=== PATIENT | female | born 1990 ===

== ENCOUNTER 2018-06-13 14:43 | Emergency (ER) | payer SELFPAY ==
[2018-06-13 15:40] LABS: #Eosinphils 0.1 thou/uL (0.0-0.7); #Lymphocytes 2.6 thou/uL (1.20-3.40); #Monocytes 0.7 thou/uL (0.11-0.59); #Neutrophils 6.6 thou/uL (1.40-6.50); %Basophils 0.5 % (0.0-1.0); %Eosinophils 0.6 % (0.0-10.0); %Lymphocytes 26.1 % (21.0-51.0); %Monocytes 6.5 % (0.0-10.0); %Neutrophils 66.3 % (42.0-75.0); Hemoglobin 14.8 g/dL (12.0-16.0); Mean Corpuscular HGB CONC 31.7 g/dL (32.0-36.0); Mean Corpuscular Hemoglobin 29.8 pg (27.0-31.0); Mean Corpuscular Volume 93.9 fL (78.0-98.0); Mean Platelet Volume 7.7 fL (7.4-10.4); Platelet Count 283 thou/uL (130-400); Red Blood Cell (RBC) Count 4.95 mill/uL (4.20-5.40)
[2018-06-13 16:02] LABS: ALT (SGPT) 10 U/L (8-55); AST (SGOT) 18 U/L (5-34); Albumin 5.1 g/dL (3.5-5.0); Alkaline Phosphatase 65 U/L (40-150); Anion Gap 15 mmol/L (10-20); BUN (Urea Nitrogen) 10 mg/dL (7.0-18.7); Bilirubin, Total 0.9 mg/dL (0.2-1.2); Calc. Creatinine Clearance 0 mL/min (70-130); Calcium 10.3 mg/dL (7.8-10.44); Carbon Dioxide 22 mmol/L (22-29); Chloride 108 mmol/L (98-107); Estimated GFR-MDRD 85; Globulin 3.1 g/dL (2.4-3.5); Glucose 97 mg/dL (70-105); Potassium 3.5 mmol/L (3.5-5.1); Protein, Total 8.2 g/dL (6.0-8.3); Sodium 141 mmol/L (136-145)
[2018-06-13 16:13] LABS: Bilirubin Negative (Negative); Blood, Urine Large (Negative); Clarity CLEAR (Clear); Glucose, Urine (Dipstick) Negative (Negative); Leukocyte Moderate (Negative); Nitrite Negative (Negative); Protein, Urine (Dipstick) Negative (Neg-Trace); Specific Gravity, Urine 1.009 (1.002-1.036); Urobilinogen 0.2 mg/dL (0.2-1.0); pH, Urine 6.5 (5.0-9.0)
[2018-06-13 16:14] LABS: Pregnancy Test - Urine (BHCG) Negative (Negative); Pregu Control Background? CLEAR/WHITE (CLR/WHITE); Pregu Control Bar Appear? YES (CONTROL BAR); Specific Gravity 1.009 (1.002-1.036)
[2018-06-13 16:15] LABS: Bacteria/HPF 4+ HPF (None Seen); Hyaline Casts/LPF 0-3 HYALINE CAST LPF (0-3 Hyaline); Pathc Cast-AUWi Flag 0.43 (0-2.49); RBC/HPF 0-3 HPF (0-3); Squamous Epithelial 0-3 HPF (0-3); WBC/HPF 21-50 HPF (0-3)
[2018-06-13] MEDS ORDERED: Ketorolac Tromethamine 30 MG/ML VIAL ONE (16:29)
[2018-06-13] MEDS ORDERED: Ondansetron PF 4 MG/2 ML Vial ONE (16:29)
--- NOTE | 2018-06-13 18:00 | CT ---
NONCONTRAST CT ABDOMEN AND PELVIS 06/13/18 HISTORY: Hematuria for 4 days with history of flank pain for 4 weeks. Urinary frequency and burning. COMPARISON: None available. FINDINGS: The lung bases are clear. There are multiple nonobstructing bilateral renal calculi measuring up to 4 mm in greatest dimensions . The ureters are not well seen bilaterally due to multiple unopacified structures and lack of intra- abdominal fat. No definite ureteral calculus is visualized. There is no hydronephrosis or hydroureter visualized. There are calcifications seen in the pelvis likely related to multiple phleboliths. The urinary bladder is incompletely distended, but otherwise normal in appearance. The liver, spleen, pancreas, and bilateral adrenal glands as well as the uterus and adnexal structure s demonstrate a grossly normal nonenhanced CT appearance for the patient's age. Portions of the appendix are visualized and are normal in caliber with gas present without CT finding s to suggest appendicitis. There is minimal non-specific stranding seen in the lower pelvis which is defined and does not appear to be related to an inflammatory process; this may be related to vessels in this region. No rectal wall thickening is present. Small bowel is normal in caliber. IMPRESSION: 1. Nonobstructing bilateral renal calculi. There is no evidence of hydronephrosis or hydroureter . As noted above, the ureters are not visualized, but no definitive calculus is seen along the course of either ureter. There is a calcification in the left hemipelvis which is in the region of the left ureter, but this is most likely related to a phlebolith. 2. No CT evidence of appendicitis. POS: [facility]
== END 2018-06-13 18:00 | disposition home or self-care (01) ==
LOC: ERS 14:43
DX: N39.0 Urinary tract infection, site not specified (principal); N20.0 Calculus of kidney; G43.909 Migraine, unspecified, not intractable, without status migrainosus; F41.9 Anxiety disorder, unspecified; Z87.891 Personal history of nicotine dependence
CPT/HCPCS: 36415; 74176; 80053; 81003; 81015; 81025; 85025; 94760; 96374; 96375; J1885; J2405